=== PATIENT | female | born 1970 | race Caucasian/White ===

== ENCOUNTER → 2016-11-12 | Outpatient (CLI) | payer OTHER ==
[~2016-11-12] MED LIST: ALBUTEROL INH INH; DIPH25CA61 PO; FLUT1AER INH; OMEP40CA6 PO
[2016-11-12 07:46] LABS: ASPARTATE AMINO TRANSFERASE 15 U/L (15-37); BLOOD UREA NITROGEN 16 mg/dL (7-18)
== END | disposition home or self-care (01) ==
LOC: LAB 07:22
PROVIDERS: ATTEND Genetic Counselor, MS
DX: E66.9 Obesity, unspecified (principal)
CPT/HCPCS: 36415; 80053

== ENCOUNTER → 2016-12-24 | Outpatient (CLI) | payer OTHER ==
[2016-12-24 11:32] LABS: BLOOD UREA NITROGEN 13 mg/dL (7-18)
== END | disposition home or self-care (01) ==
LOC: LAB 11:08
PROVIDERS: ATTEND Genetic Counselor, MS
DX: R94.4 Abnormal results of kidney function studies (principal)
CPT/HCPCS: 36415; 80048

== ENCOUNTER → 2018-05-29 | Outpatient (CLI) | payer OTHER | END | disposition home or self-care (01) | LOC: CFH 14:45 | PROVIDERS: ATTEND Genetic Counselor, MS | DX: Z12.31 Encounter for screening mammogram for malignant neoplasm of breast (principal); Z80.3 Family history of malignant neoplasm of breast | CPT/HCPCS: 77063; 77067 ==

== ENCOUNTER → 2018-10-05 | Outpatient (CLI) | payer OTHER ==
[2018-10-05 08:22] LABS: MEAN CORPUSCULAR HEMOGLOBIN 27.5 pg (27.0-34.8); MEAN CORPUSCULAR HGB CONC 33.2 g/dL (32.4-35.8); MEAN CORPUSCULAR VOLUME 82.8 fL (80-100); MEAN PLATELET VOLUME 6.7 fL (7.4-10.4); PLATELET COUNT 335 x10^3/uL (130-400); RED BLOOD COUNT 4.25 x10^6/uL (3.82-5.3); RED CELL DISTRIBUTION WIDTH 13.8 % (9.6-15.2)
[2018-10-05 08:32] LABS: ALBUMIN 3.3 g/dL (3.4-5.0); ANION GAP 4 mmol/L (5-15); CALCIUM 8.3 mg/dL (8.5-10.1); CHLORIDE 110 mmol/L (98-107)
[2018-10-05 08:55] LABS: HEMOGLOBIN A1C 5.4 % (4.2-6.3)
[2018-10-05 09:22] LABS: % IRON SATURATION 10 % (20-55); ALANINE AMINOTRANSFERASE 26 U/L (12-78); ALKALINE PHOSPHATASE 51 U/L (45-117); BILIRUBIN,TOTAL 0.2 mg/dL (0.2-1.0); CHOL/HDL RATIO 2.5; CHOLESTEROL, TOTAL 147 mg/dL (140-239); CREATININE 0.93 mg/dL (0.55-1.02); FOLATE LEVEL 14.5 ng/mL (3.1-17.5); FREE T4 (FREE THYROXINE) 1.31 ng/dL (0.76-1.46); HDL CHOL % 39 % (28-40); HDL CHOLESTEROL (DIRECT) 58 mg/dL (40-60); IRON LEVEL 32 mcg/dL (50-170); LDL CHOLESTEROL,CALCULATED 76 mg/dL (54-169); LDL/HDL RATIO 1.3 (0.5-3.0); TOTAL IRON BINDING CAPACITY 332 mcg/dL (250-450); TOTAL PROTEIN 6.8 g/dL (6.4-8.2); TRIGLYCERIDES 63 mg/dL (50-200); VLDL CHOLESTEROL 13 mg/dL (0-25)
== END | disposition home or self-care (01) ==
LOC: LAB 07:57
PROVIDERS: ATTEND Genetic Counselor, MS
DX: I10 Essential (primary) hypertension (principal); R73.09 Other abnormal glucose; R94.4 Abnormal results of kidney function studies
CPT/HCPCS: 36415; 80053; 80061; 82306; 82607; 82728; 82746; 83036; 83540; 83550; 84439; 84443; 85027

== ENCOUNTER 2018-10-13 11:04 | Emergency (ER) | payer OTHER ==
[~2018-10-13] VITALS: Ht 167.6 cm; Wt 102.0 kg
[2018-10-13 11:12] VITALS: BP 154/91
--- NOTE | 2018-10-13 11:18 | NUR ---
PT TO ROOM 17 FROM TRIAGE
[2018-10-13] MEDS ORDERED: KETOROLAC 30 MG/1 ML IM ONE (12:00)
[2018-10-13] MEDS ORDERED: KETOROLAC 30 MG/1 ML ONE (12:25)
[2018-10-13 12:26] LABS: HCT (SEDRATE) 36.7 % (34.6-47.8)
--- NOTE | 2018-10-13 12:37 | NUR ---
ULTRASOUND IS AT THE BEDSIDE FOR STUDY. PT AMBULATED TO AND FROM THE RESTROOM WITH A STEADY GAIT. URINE SAMPLE PROVIDED, AND WALKED TO THE LAB FOR ANALYSIS.
[2018-10-13 12:53] LABS: MICROSCOPIC NOT IND
[2018-10-13 12:55] LABS: CULTURE INDICATED? NO
== END 2018-10-13 14:26 | disposition home or self-care (01) ==
LOC: ED 13:11
DX: M13.832 Other specified arthritis, left wrist (principal); M13.831 Other specified arthritis, right wrist; M13.852 Other specified arthritis, left hip; M13.851 Other specified arthritis, right hip; M13.862 Other specified arthritis, left knee; M13.861 Other specified arthritis, right knee; M13.872 Other specified arthritis, left ankle and foot; M13.871 Other specified arthritis, right ankle and foot; G89.29 Other chronic pain; I10 Essential (primary) hypertension; K21.9 Gastro-esophageal reflux disease without esophagitis
CPT/HCPCS: 36415; 73610; 81003; 84703; 85651; 86140; 93970; 96372; 99284; J1885

== ENCOUNTER 2019-05-31 14:37 | Outpatient (CLI) | payer OTHER ==
[~2019-05-31 14:37] MED LIST changes: +OMEP40CA42 PO; -OMEP40CA6 PO
== END 2019-05-31 23:59 | disposition home or self-care (01) ==
LOC: CFH 14:37
PROVIDERS: ATTEND Genetic Counselor, MS
DX: Z12.31 Encounter for screening mammogram for malignant neoplasm of breast (principal); N64.89 Other specified disorders of breast; Z82.49 Family history of ischemic heart disease and other diseases of the circulatory system; Z83.3 Family history of diabetes mellitus
CPT/HCPCS: 77067

== ENCOUNTER 2019-08-02 10:16 | Emergency (ER) | payer OTHER ==
[~2019-08-02] VITALS: Ht 167.6 cm; Wt 104.7 kg
[2019-08-02] MEDS ORDERED: SODIUM CHLORIDE FLUSH 10ML SYR IVF ONE (10:30)
--- NOTE | 2019-08-02 10:50 | NUR ---
US AT BEDSIDE AT THIS TIME.
[2019-08-02 11:03] LABS: BASOPHILS # (AUTO) 0.01 x10^3/uL (0-0.1); BASOPHILS % (AUTO) 0 % (0-1); EOSINOPHILS # (AUTO) 0.22 x10^3/uL (0-0.4); EOSINOPHILS % (AUTO) 5 % (1-7); LYMPHOCYTES # (AUTO) 1.02 x10^3/uL (1-3.4); LYMPHOCYTES % (AUTO) 21 % (22-44); MD NO; MEAN CORPUSCULAR HEMOGLOBIN 26.3 pg (27.0-34.8); MEAN CORPUSCULAR VOLUME 79.7 fL (80-100); MEAN PLATELET VOLUME 6.9 fL (7.4-10.4); MONOCYTES # (AUTO) 0.38 x10^3/uL (0.2-0.8); MONOCYTES % (AUTO) 8 % (2-9); NEUTROPHILS # (AUTO) 3.26 x10^3/uL (1.8-6.8); NEUTROPHILS % (AUTO) 67 % (42-75); PLATELET COUNT 318 x10^3/uL (130-400); RED BLOOD COUNT 4.52 x10^6/uL (3.82-5.3); RED CELL DISTRIBUTION WIDTH 15.5 % (9.6-15.2)
[2019-08-02 11:16] LABS: ALBUMIN 3.4 g/dL (3.4-5.0); ANION GAP 8 mmol/L (5-15); CALCIUM 8.3 mg/dL (8.5-10.1); CHLORIDE 108 mmol/L (98-107)
[2019-08-02 11:23] LABS: ALANINE AMINOTRANSFERASE 85 U/L (12-78); ALKALINE PHOSPHATASE 98 U/L (45-117); BILIRUBIN,TOTAL 0.6 mg/dL (0.2-1.0); CREATININE 1.03 mg/dL (0.55-1.02); TOTAL PROTEIN 7.1 g/dL (6.4-8.2)
--- NOTE | 2019-08-02 11:24 | NUR ---
pt c/o epigastric pain rad to back, worse after meals x1 week, +n/v denies abd surgery. pt's aox4. resps even and unlabored. us at bedside still.
--- NOTE | 2019-08-02 11:32 | NUR ---
pt amb to br with steady gait.
[2019-08-02 12:02] LABS: MICROSCOPIC INDICATED
[2019-08-02 12:15] LABS: CULTURE INDICATED? YES
--- NOTE | 2019-08-02 12:20 | NUR ---
TASK RN NOTE: PT SITTING UP IN BED, RESPIRATIONS EVEN AND UNLABORED ON RA. NAD NOTED AT THIS TIME. PT DENIES PAIN AT THIS TIME. ERMD IN TO RECHECK PT.
[2019-08-02 13:16] VITALS: BP 136/75
--- NOTE | 2019-08-02 13:24 | NUR ---
Patient given discharge instructions and they have confirmed that they understand the instructions. Patient ambulatory with steady gait.
== END 2019-08-02 13:24 | disposition home or self-care (01) ==
LOC: ED 12:18
DX: R10.13 Epigastric pain (principal); I10 Essential (primary) hypertension; K21.9 Gastro-esophageal reflux disease without esophagitis; R74.0 Nonspecific elevation of levels of transaminase and lactic acid dehydrogenase [LDH]
CPT/HCPCS: 36415; 76700; 80053; 81001; 83690; 84703; 85025; 87086; 99284

== ENCOUNTER 2019-08-13 11:16 | Outpatient (CLI) | payer OTHER ==
[2019-08-13] MEDS ORDERED: LISI-167 PO (11:48)
[2019-08-13] MEDS ORDERED: PANT40TA5 PO (11:48)
== END 2019-08-13 23:59 | disposition home or self-care (01) ==
LOC: STAR 11:16
PROVIDERS: ATTEND Thoracic Surgery (Cardiothoracic Vascular Surgery)
DX: Z02.9 Encounter for administrative examinations, unspecified (principal)

== ENCOUNTER 2019-08-18 06:56 | Day surgery (SDC) | payer OTHER ==
[~2019-08-18] VITALS: Ht 167.6 cm; Wt 103.0 kg
[~2019-08-18 06:56] MED LIST changes: +BUPIVACAINE/PF 0.5% ONE; +EPINEPHRINE 1 MG/ML, 1ML ONE; +LISI-167 PO; +PANT40TA5 PO
[2019-08-18] MEDS ORDERED: LACTATED RINGERS 1,000 ML IV SCH ×2 (07:26→09:56)
[2019-08-18] MEDS ORDERED: SCOPOLAMINE PATCH, 1.5MG PATCH.TD72 TD ONE (07:30)
[2019-08-18] MEDS ORDERED: GABAPENTIN 300 MG CAPSULE PO ONE (07:30)
[2019-08-18] MEDS ORDERED: ACETAMINOPHEN 500 MG TABLET PO ONE (07:30)
[2019-08-18] MEDS ORDERED: LIDOCAINE-MPF 1%, 2ML INFIL ONE (07:30)
[2019-08-18] MEDS ORDERED: DIAZEPAM 5 MG TABLET PO ONE (07:30)
[2019-08-18 07:44] VITALS: BP 127/75
[2019-08-18 07:57] LABS: HCG UR SG 1.034 (1.003-1.030)
[2019-08-18] MEDS ORDERED: INDOCYANINE GREEN 25 MG VIAL ONE (08:13)
[2019-08-18] MEDS ORDERED: INDOCYANINE GREEN 25 MG VIAL IV ONE (08:30)
[2019-08-18] MEDS ORDERED: FENTANYL PF 250 MCG/5ML ONE (09:01)
[2019-08-18] MEDS ORDERED: MIDAZOLAM 1 MG/ML, 2ML ONE (09:01)
[2019-08-18] MEDS ORDERED: DEXAMETHASONE 4 MG/ML, 1ML ONE (09:02)
[2019-08-18] MEDS ORDERED: SUCCINYLCHOLINE 20 MG/ML, 10ML ONE (09:02)
[2019-08-18] MEDS ORDERED: ONDANSETRON 2MG/ML, 2ML ONE (09:02)
[2019-08-18] MEDS ORDERED: PROPOFOL 10 MG/ML, 20ML ONE ×2 (09:02)
[2019-08-18] MEDS ORDERED: ROCURONIUM 10MG/ML,5ML ONE (09:02)
[2019-08-18] MEDS ORDERED: CEFAZOLIN 1,000 MG ONE (09:02)
[2019-08-18] MEDS ORDERED: LIDOCAINE-MPF 2% ,5ML ONE (09:03)
[2019-08-18] MEDS ORDERED: KETOROLAC 30 MG/1 ML ONE (09:23)
[2019-08-18] MEDS ORDERED: SUGAMMADEX 200 MG/2 ML IVPush ONE (09:23)
[2019-08-18] MEDS ORDERED: ALBUTEROL SULFATE 2.5 MG/3 ML NPPB PRN (09:30)
[2019-08-18] MEDS ORDERED: MIDAZOLAM 1 MG/ML, 2ML IV PRN (09:30)
[2019-08-18] MEDS ORDERED: FENTANYL PF 100 MCG/2ML IV PRN (09:30)
[2019-08-18] MEDS ORDERED: HALOPERIDOL 5 MG/ML IV PRN (09:30)
[2019-08-18] MEDS ORDERED: HYDROmorphone 2 MG/ML, 1ML IVPush PRN (09:30)
[2019-08-18] MEDS ORDERED: LABETALOL 5MG/ML, 20ML IV PRN (09:30)
[2019-08-18] MEDS ORDERED: OXYcodone 5 MG/5 ML ORAL.SOL UDC PO PRN (09:30)
[2019-08-18] MEDS ORDERED: ONDANSETRON ODT 8 MG PO PRN (09:30)
[2019-08-18] MEDS ORDERED: ONDANSETRON 2MG/ML, 2ML IV PRN (09:30)
[2019-08-18] MEDS ORDERED: PROMETHAZINE 12.5 MG SUPP PR PRN (09:30)
[2019-08-18] MEDS ORDERED: PROMETHAZINE 25 MG/ML, 1ML IV PRN (09:30)
[2019-08-18] MEDS ORDERED: EPHEDRINE 50 MG/ML, 1ML IVPush PRN (09:30)
[2019-08-18] MEDS ORDERED: MEPERIDINE/PF 25MG/ML,1ML IVPush PRN (09:30)
[2019-08-18] MEDS ORDERED: hydrALAzine 20 MG/ML, 1ML IV PRN (09:30)
[2019-08-18] MEDS ORDERED: DIAZEPAM 5 MG/ML, 2ML IVPush PRN (09:30)
[2019-08-18] MEDS ORDERED: HYDROcodone/APAP 5/325 TABLET PO PRN (10:00)
[2019-08-18] MEDS ORDERED: ONDANSETRON 2MG/ML, 2ML IVPush PRN (10:00)
[2019-08-18] MEDS ORDERED: morphine SULFATE 10 MG/ML, 1ML IVPush PRN (10:00)
[2019-08-18] MEDS ORDERED: FENTANYL PF 100 MCG/2ML ONE (10:37)
[2019-08-18] MEDS ORDERED: OXYcodone 5 MG/5 ML ORAL.SOL UDC ONE (10:37)
== END 2019-08-18 12:15 | disposition home or self-care (01) ==
LOC: OUT 06:56
PROVIDERS: ATTEND Thoracic Surgery (Cardiothoracic Vascular Surgery)
DX: K80.10 Calculus of gallbladder with chronic cholecystitis without obstruction (principal); J45.909 Unspecified asthma, uncomplicated; I10 Essential (primary) hypertension; Z72.89 Other problems related to lifestyle
CPT/HCPCS: 47562; 81025; 88304; J0171; J0330; J0690; J1100; J1885; J2250; J2405; J2704; J3010; J7120

== ENCOUNTER → 2020-06-30 | Outpatient (CLI) | payer OTHER ==
[~2020-06-30] MED LIST changes: -BUPIVACAINE/PF 0.5% ONE; -EPINEPHRINE 1 MG/ML, 1ML ONE; -PANT40TA5 PO; +PANT40TA6 PO
== END | disposition home or self-care (01) ==
LOC: CFH 12:48
PROVIDERS: ATTEND Genetic Counselor, MS
DX: Z12.31 Encounter for screening mammogram for malignant neoplasm of breast (principal)
CPT/HCPCS: 77063; 77067

== ENCOUNTER → 2020-10-30 | Outpatient (CLI) | payer OTHER ==
[2020-10-30 08:13] LABS: BASOPHILS % (AUTO) 1 % (0-1); EOSINOPHILS % (AUTO) 6 % (1-7); LYMPHOCYTES % (AUTO) 17 % (22-44); MEAN CORPUSCULAR HEMOGLOBIN 26.1 pg (27.0-34.8); MEAN PLATELET VOLUME 6.4 fL (7.4-10.4); MONOCYTES % (AUTO) 8 % (2-9); NEUTROPHILS % (AUTO) 69 % (42-75); PLATELET COUNT 311 x10^3/uL (130-400); RED BLOOD COUNT 4.52 x10^6/uL (3.82-5.3); RED CELL DISTRIBUTION WIDTH 16.3 % (9.6-15.2)
[2020-10-30 08:17] LABS: MD NO
[2020-10-30 08:21] LABS: ALANINE AMINOTRANSFERASE 27 U/L (12-78); ALBUMIN 3.4 g/dL (3.4-5.0); ANION GAP 4 mmol/L (5-15); CALCIUM 8.9 mg/dL (8.5-10.1); CHLORIDE 112 mmol/L (98-107); CHOLESTEROL, TOTAL 176 mg/dL (140-239); CREATININE 0.99 mg/dL (0.55-1.02)
[2020-10-30 08:31] LABS: ALKALINE PHOSPHATASE 64 U/L (45-117); BILIRUBIN,TOTAL 0.3 mg/dL (0.2-1.0); CHOL/HDL RATIO 2.5; HDL CHOL % 40 % (28-40); HDL CHOLESTEROL (DIRECT) 70 mg/dL (40-60); LDL CHOLESTEROL,CALCULATED 92 mg/dL (54-169); LDL/HDL RATIO 1.3 (0.5-3.0); TOTAL PROTEIN 7.1 g/dL (6.4-8.2); TRIGLYCERIDES 70 mg/dL (50-200); VLDL CHOLESTEROL 14 mg/dL (0-25)
== END | disposition home or self-care (01) ==
LOC: LAB 07:47
PROVIDERS: ATTEND Nurse Practitioner Family
DX: I10 Essential (primary) hypertension (principal); R53.83 Other fatigue; N95.1 Menopausal and female climacteric states; R63.5 Abnormal weight gain; R12 Heartburn; Z83.3 Family history of diabetes mellitus; Z83.49 Family history of other endocrine, nutritional and metabolic diseases
CPT/HCPCS: 36415; 80053; 80061; 82306; 83036; 84443; 85025